=== PATIENT | male | born 1950 | race Two or more races ===

== ENCOUNTER → 2016-08-21 | Outpatient (CLI) | payer MEDICARE ==
[~2016-08-21] MED LIST: ACET1CAP18 PO; DULO-39 PO; FLUD.1 PO; FLUO10CA5 PO; FLUO20CA4 PO; GLUC1000 PO; INSU-173; LEVEMIR SQ; LISI-515 PO; MECL25CH CHEW; NAPR220T95 PO; SIMV40TA PO; TAMS5CAP PO; [UNRECOGNIZED DRUG - OTHER]
[2016-08-21 11:23] LABS: ANION GAP 9 MEQ/L (5-15); BLOOD UREA NITROGEN 17 MG/DL (7-18); CHLORIDE 103 MEQ/L (98-107); GLOMERULAR FILTRATION RATE 60 ML/MIN (>89); GLUCOSE,FASTING 220 MG/DL (74-99); POTASSIUM 3.9 MEQ/L (3.5-5.1); SODIUM (NA) 138 MEQ/L (136-145)
[2016-08-21 16:46] LABS: HEMOGLOBIN A1a 0.8 %; HEMOGLOBIN A1b 1.8 %; HEMOGLOBIN Ao 83.7 %; HEMOGLOBIN LA1C 2.9 %; HEMOGLOBIN P3 4.1 %
== END ==
LOC: CLAB 10:08
PROVIDERS: ATTEND Family Medicine
DX: R55 Syncope and collapse (principal); E11.9 Type 2 diabetes mellitus without complications; H53.8 Other visual disturbances
CPT/HCPCS: 36415; 80048; 83036

== ENCOUNTER → 2016-11-14 | Outpatient (CLI) | payer MEDICARE ==
[~2016-11-14] MED LIST changes: -FLUD.1 PO; -FLUO10CA5 PO
[2016-11-14 08:22] LABS: AUTOMATED NEUTROPHIL # 6.8 TH/MM3 (1.8-7.7); BASOPHIL # 0.1 TH/MM3 (0-0.2); BASOPHIL % 0.6 % (0.0-2.0); EOSINOPHIL # 0.2 TH/MM3 (0-0.4); EOSINOPHIL % 1.6 % (0.0-4.0); HEMATOCRIT 39.2 % (39.0-51.0); HEMO FLAGS DIFF FINAL; LYMPH % 21.5 % (9.0-44.0); MEAN CELL VOLUME 96.1 FL (80.0-100.0); MEAN CORPUSCULAR HEMOGLOBIN 30.8 PG (27.0-34.0); MONO % 4.3 % (0.0-8.0); PLATELET COUNT 223 TH/MM3 (150-450); RED BLOOD COUNT 4.08 MIL/MM3 (4.50-5.90); RED CELL DISTRIBUTION WIDTH 13.5 % (11.6-17.2); WHITE BLOOD COUNT 9.4 TH/MM3 (4.0-11.0)
[2016-11-14 08:43] LABS: BICARBONATE 22.7 MEQ/L (21.0-32.0); POTASSIUM 4.4 MEQ/L (3.5-5.1)
== END ==
LOC: CLAB 07:54
PROVIDERS: ATTEND Family Medicine
DX: R42 Dizziness and giddiness (principal)
CPT/HCPCS: 36415; 80048; 84443; 85025

== ENCOUNTER → 2016-11-27 | Outpatient (CLI) | payer MEDICARE ==
[2016-11-27 09:43] LABS: HDL CHOLESTEROL 33.6 MG/DL (40.0-60.0)
== END ==
LOC: CLAB 08:48
PROVIDERS: ATTEND Family Medicine
DX: E11.9 Type 2 diabetes mellitus without complications (principal)
CPT/HCPCS: 36415; 80061

== ENCOUNTER → 2017-05-23 | Outpatient (CLI) | payer MEDICARE ==
[~2017-05-23] MED LIST changes: -ACET1CAP18 PO; +ALEV220T14 PO; -DULO-39 PO; -FLUO20CA4 PO; +FLUO40CA PO; +INSU-150; -INSU-173; +LANTINJ SQ; -LEVEMIR SQ; -LISI-515 PO; +LISI10TA3 PO; -MECL25CH CHEW; -NAPR220T95 PO; +TRAZ100T10 PO; +TYLE325T PO
[2017-05-23 09:22] LABS: HDL CHOLESTEROL 37.7 MG/DL (40.0-60.0)
== END ==
LOC: CLAB 08:22
PROVIDERS: ATTEND Family Medicine
DX: R55 Syncope and collapse (principal); E11.9 Type 2 diabetes mellitus without complications
CPT/HCPCS: 36415; 80061; 82043